=== PATIENT | female | born 1980 | race Caucasian/White ===

== ENCOUNTER → 2020-01-02 07:57 | Outpatient (BNVA) | payer OTHER, SELFPAY | PROVIDERS: Family Provider Family Medicine; PCP Family Medicine; Visit Provider Obstetrics & Gynecology | DX: Z01.419 Encounter for gynecological examination (general) (routine) without abnormal findings (principal); R87.612 Low grade squamous intraepithelial lesion on cytologic smear of cervix (LGSIL) | CPT/HCPCS: 88175 ==

== ENCOUNTER → 2020-02-07 09:53 | Outpatient (BNVA) | payer OTHER, SELFPAY | PROVIDERS: Family Provider Family Medicine; PCP Family Medicine; Referring Provider Obstetrics & Gynecology; Visit Provider Obstetrics & Gynecology | DX: Z32.01 Encounter for pregnancy test, result positive (principal) | CPT/HCPCS: 81025 ==

== ENCOUNTER → 2020-03-07 13:57 | Outpatient (BNVA) | payer OTHER, SELFPAY | PROVIDERS: Family Provider Family Medicine; PCP Family Medicine; Visit Provider Obstetrics & Gynecology | DX: Z01.89 Encounter for other specified special examinations (principal) ==

== ENCOUNTER → 2020-03-27 14:49 | Outpatient (BNVA) | payer OTHER, SELFPAY | PROVIDERS: Family Provider Family Medicine; PCP Family Medicine; Visit Provider Obstetrics & Gynecology | DX: O02.1 Missed abortion (principal); Z3A.12 12 weeks gestation of pregnancy | CPT/HCPCS: 76815 ==

== ENCOUNTER 2020-03-28 10:27 | Day surgery (SDC) | payer OTHER, SELFPAY ==
[2020-03-27 16:48] VITALS: BMI 21.6
[2020-03-28 10:50] VITALS: BP 130/76; PULSE 80; RESP 18; TEMP 36.6; O2SAT 100
[2020-03-28] MEDS: ketorolac 30 mg/mL INJ IVP (11:18)
--- NOTE | 2020-03-28 11:18 | ANES.PREANE2 ---
Pre-Anesthetic Assessment Pre-Anesthetic Assessment: Height/Weight: Height 1.65 m Weight 58.967 kg Temp Pulse Resp BP Pulse Ox 98 F 80 18 130/76 100 03/28/20 10:50 03/28/20 10:50 03/28/20 10:50 03/28/20 10:50 03/28/20 10:50 Preop Diagnosis: Missed AB Proposed Procedure: Operation Date: 03/28/20 12:05 Proposed Procedures p Dilation And Curettage w/ Suction 32358 O02.1(Not Applicable) - Geoff Clarke MD Familial anesthetic complications: None Was Beta Joseph taken within 24 hours: N/A Last intake: Intake NPO > 8 hrs Last Liquid Date 03/27/20 Last Solid Date 03/27/20 Social: Social History: No alcohol and No tobacco Exam: Pre-Anes Outpt Exam: alert, oriented x 3, clear to auscultation bilaterally and regular rate & rhythm Airway: Cervical ROM: WNL MP: 1 Dentition: Full Pulmonary: Pulmonary: None reported CV/HEM: CV/HEM: None reported : : None reported Hepatic: Hepatic: None reported GI: GI: None reported Metabolic: Metabolic: None reported Musc/skel: Musc/skel: None reported Neuropsych: Neuropsych: None reported Anesthetic Plan: ASA status: 1 Anesthesia: General and MAC Risk of > 500 ml blood loss (7ml/kg in children): No PFSH Anesthesia PFSH: Social History Smoking and tobacco status: never smoked Alcohol intake: never Additional social history: well-balanced Data Anesthesia Cardiac Studies: No Data to Display
[2020-03-28 11:19] LABS: Basophils # 0.1 10^3/uL (0.0-0.1); Basophils % 0.5 %; Eosinophils # 0.4 10^3/uL (0.0-0.8); Eosinophils % 4.3 %; Hematocrit 45.4 % (37.0-47.0); Hemoglobin 14.2 g/dL (11.5-15.3); Lymphocytes # 2.2 10^3/uL (0.8-4.8); Lymphocytes % 23.5 %; Mean Corpuscular HGB Conc 31.3 g/dL (30.0-36.0); Mean Corpuscular Hemoglobin 28.8 pg (28.0-34.0); Mean Corpuscular Volume 92.1 fL (81-99); Mean Platelet Volume 9.7 fL (7.4-10.4); Monocytes # 0.5 10^3/uL (0.2-0.9); Monocytes % 4.8 %; Neutrophils # 6.2 10^3/uL (1.8-7.7); Neutrophils % 66.5 %; Nucleated Red Blood Cells % 0 %; Platelet Count 226 10^3/cmm (130-400); Red Blood Count 4.93 10^6/uL (4.1-5.3); Red Cell Distribution Width 13.2 % (12.1-15.1); White Blood Count 9.3 10^3/uL (4.0-10.0)
[2020-03-28] MEDS: sodium chloride 0.9% 1,000 ML 30 ML IV (11:19)
[2020-03-28 11:21] LABS: Add Urine Microscopic? YES; Bilirubin Urine Neg (NEGATIVE); Blood Urine 2+ (Negative); Glucose Urine UA Norm (Normal); Ketones Urine Negative (Negative); Leukocyte Esterase Urine Negative (Negative); Nitrate Urine Negative (Negative); Protein Urine Neg (Negative); Specific Gravity, Urine 1.015 (1.005-1.030); Urine Appearance Clear (CLEAR); Urine Color Yellow (Yellow); Urobilinogen Urine Norm (Negative); pH Urine 6 (5-7)
[2020-03-28 11:25] LABS: RBC Urine 0-4 /hpf (0-2)
[2020-03-28 11:26] LABS: Bacteria Urine TRACE; WBC Urine 0-4 /hpf (0-5)
[2020-03-28 11:27] LABS: Add Urine Culture? No
[2020-03-28 11:34] LABS: Blood Urea Nitrogen 8 mg/dL (6-20); Calcium 9.5 mg/dL (8.5-10.5); Carbon Dioxide 22 mmol/L (22-29); Chloride 103 mmol/L (98-107); Creatinine Clr Calc Pharmacy 98.4325; Glomerular Filtration Rate 93.2 mL/min (90-130); Glucose 93 mg/dL (65-115); Osmolality Calculated 282 mOsm/kg (285-295); Sodium 138 mmol/L (136-145)
[2020-03-28 12:34] VITALS: BP 79/58; PULSE 85; RESP 18; TEMP 36.8; O2SAT 95
--- NOTE | 2020-03-28 12:41 | PM.OP ---
Operative Report Date of procedure: March 28, 2020 Pre-op Diagnosis: Missed AB Post-op diagnosis: same Post-op Findings: Product of conception Procedure Done: Suction dilation and curettage. Polypectomy. Specimens removed/disposition: Product of conception. Endocervical polyp polyp Surgeon: Geoff Clarke Anesthesia: MAC Estimated blood loss (mL): 150 IV fluids (mL): 750 Complications: None Condition: stable Disposition: PACU Brief History: 39 y/o Female with an EGA of 12 weeks 3 days with a missed AB. Procedure: After informed consent, the patient was taken to the Operating Room where general anesthesia was administered. The patient was examined under anesthesia and found to have a normal uterus with normal adnexa. She was placed in the dorsal lithotomy position and prepped and draped in sterile fashion. A sterile weighted speculum was placed in the patient?s vagina. A single-tooth tenaculum was then applied to the cervix. The uterus was then gently sounded to 10 cm and a suction curette was advanced gently to the uterine fundus and product of conception emptied. A sharp curettage was then performed until a gritty texture was noted. There was minimal bleeding noted and the tenaculum was removed with good hemostasis noted. The patient tolerated the procedure well. The patient was taken to the recovery area in stable condition.
[2020-03-28 13:07] VITALS: BP 113/70; PULSE 95; RESP 18; TEMP 36.8; O2SAT 95
== END 2020-03-28 13:37 | disposition home or self-care (01) ==
PROVIDERS: Family Provider Family Medicine; PCP Family Medicine; Visit Provider Obstetrics & Gynecology
PROC: (CPT 59820; principal; 2020-03-28 11:55)
DX: O02.1 Missed abortion (principal); N84.0 Polyp of corpus uteri
CPT/HCPCS: 59820; 12345; 36415; 80048; 81001; 85025; 86850; 86900; 87086; 88305; 96374; J0690; J1885; J2001; J2250; J2704; J3010; J7030

== ENCOUNTER 2020-04-30 11:12 | Outpatient (CLI) | payer OTHER, SELFPAY ==
[2020-04-30 11:49] LABS: HCG Quantitative 0.52 mIU/mL
== END 2020-04-30 11:13 | disposition home or self-care (01) ==
LOC: LAB 11:16
PROVIDERS: PCP Family Medicine; Visit Provider Obstetrics & Gynecology Reproductive Endocrinology
DX: Z32.00 Encounter for pregnancy test, result unknown (principal)
CPT/HCPCS: 84702

== ENCOUNTER 2020-06-27 12:37 | Outpatient (CLI) | payer OTHER, SELFPAY | END 2020-06-27 12:38 | disposition home or self-care (01) | LOC: LAB 12:40 | PROVIDERS: PCP Family Medicine; Visit Provider Obstetrics & Gynecology Reproductive Endocrinology | DX: O09.819 Supervision of pregnancy resulting from assisted reproductive technology, unspecified trimester (principal) | CPT/HCPCS: 84702 ==

== ENCOUNTER 2020-07-04 14:11 | Outpatient (CLI) | payer OTHER, SELFPAY | END 2020-07-04 14:12 | disposition home or self-care (01) | LOC: LAB 14:14 | PROVIDERS: PCP Family Medicine; Visit Provider Obstetrics & Gynecology Reproductive Endocrinology | DX: O09.811 Supervision of pregnancy resulting from assisted reproductive technology, first trimester (principal) | CPT/HCPCS: 36415; 84702; 86850; 86900 ==

== ENCOUNTER → 2020-08-02 09:16 | Outpatient (BNVA) | payer OTHER, SELFPAY | PROVIDERS: PCP Family Medicine; Visit Provider Nurse Practitioner Women's Health | DX: O09.891 Supervision of other high risk pregnancies, first trimester (principal); Z3A.00 Weeks of gestation of pregnancy not specified | CPT/HCPCS: 80053; 84315 ==

== ENCOUNTER → 2020-08-16 10:52 | Outpatient (BNVA) | payer OTHER, SELFPAY | PROVIDERS: PCP Family Medicine; Visit Provider Obstetrics & Gynecology | DX: O09.891 Supervision of other high risk pregnancies, first trimester (principal); Z3A.00 Weeks of gestation of pregnancy not specified | CPT/HCPCS: 80053; 80307; 84315; 85027; 86592; 86762; 86803; 86850; 86900; 87340; 87806 ==

== ENCOUNTER → 2020-08-29 11:30 | Outpatient (BNVA) | payer OTHER, SELFPAY | PROVIDERS: PCP Family Medicine; Visit Provider Obstetrics & Gynecology | DX: O09.891 Supervision of other high risk pregnancies, first trimester (principal); Z3A.13 13 weeks gestation of pregnancy | CPT/HCPCS: 84315; 87491; 87591; 88175 ==

== ENCOUNTER → 2020-09-20 08:08 | Outpatient (BNVA) | payer OTHER, SELFPAY | PROVIDERS: PCP Family Medicine; Visit Provider Nurse Practitioner Women's Health | DX: O09.291 Supervision of pregnancy with other poor reproductive or obstetric history, first trimester (principal); O09.891 Supervision of other high risk pregnancies, first trimester; O34.219 Maternal care for unspecified type scar from previous cesarean delivery | CPT/HCPCS: 80053; 84315 ==

== ENCOUNTER → 2020-12-13 10:12 | Outpatient (BNVA) | payer OTHER, SELFPAY | PROVIDERS: PCP Family Medicine; Visit Provider Obstetrics & Gynecology | DX: O09.892 Supervision of other high risk pregnancies, second trimester (principal); O34.219 Maternal care for unspecified type scar from previous cesarean delivery; O09.523 Supervision of elderly multigravida, third trimester; Z3A.28 28 weeks gestation of pregnancy | CPT/HCPCS: 82950; 84315; 85025 ==

== ENCOUNTER → 2020-12-19 08:20 | Outpatient (BNVA) | payer OTHER, SELFPAY | PROVIDERS: PCP Family Medicine; Visit Provider Obstetrics & Gynecology | DX: R73.09 Other abnormal glucose (principal) | CPT/HCPCS: 82951; 82952 ==

== ENCOUNTER → 2021-02-08 08:56 | Outpatient (BNVA) | payer OTHER, SELFPAY | PROVIDERS: PCP Family Medicine; Visit Provider Obstetrics & Gynecology | DX: Z34.80 Encounter for supervision of other normal pregnancy, unspecified trimester (principal) | CPT/HCPCS: 84315; 87081 ==

== ENCOUNTER → 2021-02-16 10:26 | Outpatient (BNVA) | payer OTHER, SELFPAY | PROVIDERS: PCP Family Medicine; Visit Provider Obstetrics & Gynecology | DX: Z20.822 Contact with and (suspected) exposure to COVID-19 (principal); O09.893 Supervision of other high risk pregnancies, third trimester | CPT/HCPCS: 87635 ==

== ENCOUNTER 2021-02-24 08:01 | Inpatient (IN) | payer OTHER, SELFPAY ==
[2021-02-24] VITALS (81 sets, daily range): BP systolic 96–163; BP diastolic 53–99; PULSE 56–134; RESP 16; TEMP 36.8–37.3; O2SAT 93–100; BMI 26.4
[2021-02-24 09:28] LABS: Basophils # 0.1 10^3/uL (0.0-0.1); Basophils % 0.6 %; Eosinophils # 0.2 10^3/uL (0.0-0.8); Eosinophils % 2.1 %; Hematocrit 40.4 % (37.0-47.0); Hemoglobin 12.7 g/dL (11.5-15.3); Lymphocytes # 2.2 10^3/uL (0.8-4.8); Lymphocytes % 20.6 %; Mean Corpuscular HGB Conc 31.4 g/dL (30.0-36.0); Mean Corpuscular Hemoglobin 29.3 pg (28.0-34.0); Mean Corpuscular Volume 93.1 fL (81-99); Mean Platelet Volume 12.4 fL (7.4-10.4); Monocytes # 0.6 10^3/uL (0.2-0.9); Monocytes % 5.3 %; Neutrophils # 7.63 10^3/uL (1.8-7.7); Neutrophils % 70.2 %; Nucleated Red Blood Cells % 0 %; Platelet Count 179 10^3/cmm (130-400); Red Blood Count 4.34 10^6/uL (4.1-5.3); Red Cell Distribution Width 14.4 % (12.1-15.1); White Blood Count 10.9 10^3/uL (4.0-10.0)
[2021-02-24] MEDS: oxytocin 30 UNIT/500 ML BAG IV (09:39)
[2021-02-24] MEDS: dextrose 5%-lactated ringers 1,000 ML 125 ML IV (09:39)
[2021-02-24] MEDS: lactated ringers 1,000 ML 999 ML IV ×2 (16:10→17:36)
--- NOTE | 2021-02-24 17:04 | P.ANESASSM_ITS ---
Pre-Anesthetic Assessment Pre-Anesthetic Assessment: Height/Weight: Height 1.65 m Weight 72.121 kg Temp Pulse Resp BP 98.8 F 68 16 130/84 02/24/21 13:27 02/24/21 16:52 02/24/21 08:12 02/24/21 16:52 Preop Diagnosis: labor Proposed Procedure: epidural Was Beta Joseph taken within 24 hours: N/A Was Clonidine taken within 24 hours: N/A Last intake: 0700 Last Intake: 12:00 Social: Social History: No alcohol and No tobacco Exam: Pre-Anes Outpt Exam: alert, oriented x 3, clear to auscultation bilaterally and regular rate & rhythm Airway: Submandibular: WNL Cervical ROM: WNL MP: 1 Pulmonary: Pulmonary: None reported CV/HEM: CV/HEM: None reported : : None reported Hepatic: Hepatic: None reported GI: GI: GERD (with ) Metabolic: Metabolic: None reported Musc/skel: Musc/skel: Scoliosis Neuropsych: Neuropsych: None reported Anesthetic Plan: Anesthesia: Eval. for regional block and Regional (specify below) (epidural) Risk of > 500 ml blood loss (7ml/kg in children): No Meds/Allergies Current Medications: Current Medications Generic Name Dose Route Start Last Admin Trade Name Freq PRN Reason Stop Dose Admin Dextrose/Lactated Ringer's 1,000 mls @ 125 m ls/hr 02/24/21 08:45 02/24/21 09:39 Dextrose 5%-Lact ated Ringers IV 125 mls/hr .Q8H JOSE G Administration Oxytocin 30 unit in 500 ml s @ 1 mls/hr 02/24/21 08:45 02/24/21 14:09 Pitocin IV 8 milliunit/min .Q24H JOSE G 8 mls/hr Titration Protocol 1 MILLIUNIT/MIN Lactated Ringer's 1,000 mls @ 999 m ls/hr 02/24/21 16:07 02/24/21 16:10 Lactated Ringers IV 999 mls/hr .Q1H1M PRN Administration See label comment s PFSH Anesthesia PFSH: Medical History History of colon polyps Infertility, female Unexplained Low grade squamous intraepithelial lesion (LGSIL) on cervical Pap smear Migraine with aura Surgical History H/O breast augmentation (~04/2014) Silicone Gel. Below muscle. Performed Dr. Mccrary (?sp) at [facility] in [place], [place] History of melanoma excision (~2014) History of tonsillectomy and adenoidectomy (~1985) Previous section (04/12/04) PLTCS. Dx: Arrest of descent with CPD. Performed by Dr. Garcia at [facility] in [place], [place] S/P dilatation and curettage (03/28/20) Suction D&C for missed AB. Performed per Dr. Clarke at [facility] in [place], [place] Family History Other Patient denies medical problems Social History Smoking and tobacco status: never smoked Alcohol intake: never Other details last substance use: Denies drug use Additional social history: - Tobacco use: Denies Alcohol use: Denies Drug use: Denies Female Reproductive History: : 6 Data Anesthesia CBC & Chem 7: 02/24/21 08:55 Other Labs: Laboratory Results - last 48 hr 02/24/21 08:55 WBC 10.9 H RBC 4.34 Hgb 12.7 Hct 40.4 MCV 93.1 MCH 29.3 MCHC 31.4 RDW 14.4 Plt Count 179 MPV 12.4 H Neut % (Auto) 70.2 Lymph % (Auto) 20.6 [place] % (Auto) 5.3 Eos % (Auto) 2.1 Baso % (Auto) 0.6 Neut # (Auto) 7.63 Lymph # (Auto) 2.2 [place] # (Auto) 0.6 Eos # (Auto) 0.2 Baso # (Auto) 0.1 Nucleated RBC % (auto) 0 Nucleated RBCs # 0.0 Cardiac Studies: No Data to Display
[2021-02-24] MEDS: ondansetron 2 mg/ML SDV 2 mL 4 MG IVP (17:40)
--- NOTE | 2021-02-24 17:57 | ANES.PROC ---
Anesthesia Procedures Procedure/Date: 02/24/21 Epidural: Time Out Performed: Yes Consents Signed: Procedure Consent and NPO Consent Consent: requested by attending/covering physician, from patient, risks and benefits reviewed and patient agrees to proceed Lumbar Level: L3-L4 Epidural position: sitting Epidural procedure: sterile prep of area (betadine), 1% lidocaine to numb the area (3), 18 g needle, neg for paresthesia, test dose given, 1.5% xylocaine 1:200k epi (3ml with no symptoms and 2ml ), placed PCEA, no systemic response, sterile dressing applied, L.U.D. no apparent complications and 0.2% Ropiavacaine @ mls/hr (13ml/hr) Additional Comments: pt with vagal response noted once laid down with BP in 90's and HR in 50's. Pt responded to fluid and lying flat and no rop bolus given. Pt resting comfortable and will continue to monitor
--- NOTE | 2021-02-24 23:11 | PM.DELIVERY ---
Delivery Note: Date of delivery: February 24, 2021 Pre-delivery diagnoses: 1. at 39-0/7 weeks gestation. 2. Previous section, currently , third trimester 3. History of anomaly in prior , currently , third trimester 4. Advanced maternal age in third trimester Post-delivery diagnoses: 1. at 39-0/7 weeks gestation?delivered 2. Previous section?delivered 3. History of anomaly in prior ?delivered 4. Advanced maternal age?delivered 5. Viable male Procedure: Vaginal after section Op report anesthesia: Epidural Delivering Physician: Adrien Garcia MD Estimated blood loss (mL): 200 Pre-Delivery Course: Patient is a 40-year-old female, 6, para 3-0-2-2 with an EDC of 03/03/2021 based on IVF with embryo transfer. She is at 39-0/7 weeks gestation at the time of admission. care has been mainly provided by Dr. Adrien Garcia. Her care has been complicated by prior section with 2 prior successful 's, advanced maternal age, and history of anomaly in prior . Patient was admitted to the hospital at approximately 08:00 on 02/24/2021 for induction of labor. Her cervix was 50% effaced and 3 cm dilated. She was started on low-dose Pitocin. Contractions slowly worsened and increased in frequency through the day. She became uncomfortable enough that epidural was placed at approximately 17:30. Artificial rupture membranes was performed at 18:00 with clear fluid present. She was 3-4 cm dilated and 50% effaced. By 20:38 she was 7 to 8 cm dilated and was completely dilated by 21:27. Baby was reassuring during the labor course. Delivery: Patient was initially very comfortable and was allowed to labor down since the baby was reassuring. She started pushing at 22:21 and delivered at 22:40 as a spontaneous vaginal delivery of an occiput anterior male infant over a second-degree episiotomy under epidural anesthesia. Following delivery of the infant's head, no nuchal cords were noted. The rest the infant delivered atraumatically with the left shoulder anterior. was placed on the mother's abdomen where it was left in the care of the waiting nurses. Baby was spontaneously crying. Cord clamping was delayed till 30 seconds after delivery. Cord was then clamped and then cut by the reported father of the baby. Cord blood was obtained. Pitocin bolus was started. Placenta delivered intact by simple expression at 22:44. Cervix and vagina were palpated and noted to be intact. The anterior lower segment of the uterus was palpated and noted to be intact. Patient was noted to have a second-degree midline episiotomy without extension. The episiotomy was repaired with 3-0 Vicryl suture. FINDINGS 1. Viable male infant weighing 7 lbs 10 oz (3460 g) with a length of 21-1/4 inches and Apgars of 10 at 1 minute and 10 at 5 minutes. 2. Three-vessel cord with no loops of nuchal cord noted. 3. Normal-appearing placenta with a central cord insertion. Post-Delivery Status: Mother and infant were left to recover in satisfactory condition. A&P Assessment and plan (1) History of delivery, currently : Status: Acute (2) Advanced maternal age, delivered, current hospitalisation: Status: Acute (3) History of anomaly in prior , currently in third trimester: Status: Acute Coding Level of Care Code Acute Information Security Analyst for Chg Fwd Diagnoses History of delivery, currently O34.219 Advanced maternal age, delivered, current hospitalisation History of anomaly in prior , currently in third trimester O09.293
[2021-02-25] VITALS (20 sets, daily range): BP systolic 72–148; BP diastolic 50–92; PULSE 63–93; TEMP 36.2–36.3
[2021-02-25] MEDS: benzocaine-menthol 78 gm Canister 1 SPRAY TOPICAL (01:22)
[2021-02-25] MEDS: lanolin oint 7 gm 1 APPLIC TOPICAL (01:22)
[2021-02-25] MEDS: HYDROcodone-acetaminophen 5-325 mg Tablet PO (03:48)
[2021-02-25] MEDS: ibuprofen 800 mg tablet PO ×2 (08:14→14:41)
[2021-02-25] MEDS: docusate sodium 100 mg Capsule PO (08:14)
[2021-02-25 11:26] LABS: Hematocrit 33.8 % (37.0-47.0); Hemoglobin 11.1 g/dL (11.5-15.3); Mean Corpuscular HGB Conc 32.8 g/dL (30.0-36.0); Mean Corpuscular Hemoglobin 29.8 pg (28.0-34.0); Mean Corpuscular Volume 90.6 fL (81-99); Mean Platelet Volume 11.7 fL (7.4-10.4); Platelet Count 207 10^3/cmm (130-400); Red Blood Count 3.73 10^6/uL (4.1-5.3); Red Cell Distribution Width 14.6 % (12.1-15.1); White Blood Count 15.8 10^3/uL (4.0-10.0)
--- NOTE | 2021-02-25 18:31 | P.DS_ITS ---
Discharge Providers Date of Admission: 02/24/21 08:01 Date of Discharge: February 25, 2021 Attending Provider at Admission: Adrien Garcia MD Attending Provider at Discharge: Adrien Garcia MD Primary Care Provider: Kezia Davidson DO Diagnoses at Discharge Discharge Diagnosis (1) History of delivery, currently : Status: Acute (2) Advanced maternal age, delivered, current hospitalisation: Status: Acute (3) History of anomaly in prior , currently in third trimester: Status: Acute Reason for Visit Reason for Visit: INDUCTION Hospital Course Hospital Course Patient is a 40-year-old female 6, para 3-0-2-2 with an EDC of 03/03/2021 based on IVF embryo transfer, which placed her at 39-0/7 weeks gestation at the time of admission. care was provided by Dr. Adrien Garcia. was complicated by advanced maternal age, history of anomaly in prior , and prior section with 2 successful VBACs. She was admitted to the hospital at 39 weeks for induction of labor on 02/24/2021 due to recommendations of MFM due to her past history. She was started on low- dose Pitocin for cervical ripening and induction of labor. She was 3 cm dilated and 50% effaced on admission. She had artificial rupture membranes at 18:00 with clear fluid present. She was 3 to 4 cm dilated. She started progressing after th is and was found to be completely dilated by 21:27. She was very comfortable with the epidural and labor down. She started pushing at 22:21 and delivered at 22:40 as a spontaneous vaginal delivery of an occiput anterior male over a second-degree midline episiotomy under epidural anesthesia. Baby weighed 7 lbs 10 oz (3460 g) with a length of 21-1/4 in and Apgars of 10 at 1 minute and 10 at 5 minutes. Mother and baby were doing well following delivery. day one Patient reports doing well. She reports tolerating a regular diet without nausea or vomiting. She denied lightheadedness or dizziness with ambulation. She denied shortness of breath or chest pains. She states that her pain is been well controlled. She denied any problems with urination. She states that her bleeding has slowed. She she is breast-feeding. She is requesting to go home this evening. Physical exam: See below Plan Discharge to home. Discharge instructions discussed with patient. She is to follow-up in the office in approximately 6 weeks for exam. Physical Exam Const: COMMON NORMALS: no acute distress, average body habitus, alert and well nourished GENERAL APPEARANCE: well developed ORIENTATION/CONSCIOUSNESS: Yes oriented to person, Yes oriented to place and Yes oriented to time Resp: COMMON NORMALS: normal respiratory effort and clear to auscultation bilaterally AUSCULTATION: clear to auscultation bilaterally Cardio: COMMON NORMALS: regular rate, regular rhythm, No gallops present (Cardio) and No rub (Cardio) RATE: regular rate RHYTHM: regular rhythm PERIPHERAL PULSES: posterior tibial pulses present GI: COMMON NORMALS: Soft to palpation, non-tender, No hepatosplenomegaly p resent and no masses (Except for uterus) AUSCULTATION: Yes normoactive bowel sounds PALPATION: Yes Soft to palpation, Yes No hepatosplenomegaly present and No Hernia present : EXTERNAL FEMALE EXAM: No Hernia present Extremity: COMMON NORMALS: no calf tenderness NARRATIVE EXTREMITY EXAM: Trace to 1+ lower extremity edema bilaterally Neuro: SENSORIUM/ORIENTATION: Yes alert, Yes oriented to person, Yes oriented to place and Yes oriented to time Psych: COMMON NORMALS: normal affect MOOD & AFFECT: Yes euthymic mood Urinary Catheter Management^: [place]: Cath Placed During This Visit: yes, but has since been removed by the nurse Reason for Continuing Indwelling Catheter: Decision to DC Catheter Urinary Catheter Date of Insertion: 02/24/21 Urinary Catheter Time of Insertion: 19:15 Date Urinary Catheter Removed: 02/24/21 Time Urinary Catheter Discontinued: 22:19 Discharge Data Data Completed and Pending: Labs from last 24 hours 02/25/21 11:05 WBC 15.8 H RBC 3.73 L Hgb 11.1 L Hct 33.8 L MCV 90.6 MCH 29.8 MCHC 32.8 RDW 14.6 Plt Count 207 MPV 11.7 H Vitals: Last Vital Signs Temp 97.3 F L 02/25/21 14:40 Pulse 71 02/25/21 14:40 Resp 16 02/24/21 23:38 BP 119/73 02/25/21 14:40 Pulse Ox 100 02/24/21 18:16 Discharge Plan Discharge Patient Disposition: Home Condition: Stable Prescriptions: New ibuprofen 800 mg Tablet 800 mg PO TID PRN (Reason: pain) Qty: 40 RF: 0 hydrocodone-acetaminophen 5-325 mg Tablet 1 - 2 tab PO Q6H PRN (Reason: Moderate To Severe Pain) Qty: 20 RF: 0 Continued prenat.vits,fanny,[id number] Tablet 1 tab PO DAILY RF: 0 omeprazole 20 mg capsule,delayed release(DR/EC) 20 mg PO BID PRNRF: 0 Discharge Orders: Discharge Order (Routine); Ordered 02/25/21 Ordered By: Adrien Garcia Referrals: Adrien Garcia MD [Physician] - 6 Weeks ( exam Please call [facility] first thing Thursday to schedule your 6 week appointment.) Discharge Diet: Regular Discharge Activity: Limit activity as instructed Patient Instructions: Pre-eclampsia and Eclampsia (DC), Bleeding (DC), OB Discharge Report, OB Food/Drug Interaction Guide, OB Proud Parent Packet, OB Vaginal Deliveries, OB Vaginal Deliveries - [facility], Abnormal Bleeding Discharge Attestations Time Spent in Discharge Care*: less than 30 min Quality Metrics Clinical Quality Measures During this hospital stay, did patient experience: None Coding Level of Care Code Acute Chg FW DC note Diagnoses History of delivery, currently O34.219 Advanced maternal age, delivered, current hospitalisation History of anomaly in prior , currently in third trimester O09.293
== END 2021-02-25 23:34 | disposition home or self-care (01) | DRG 807 ==
PROVIDERS: Admitting Provider Obstetrics & Gynecology; PCP Family Medicine; Visit Provider Obstetrics & Gynecology
DX: O34.219 Maternal care for unspecified type scar from previous cesarean delivery (principal); Z37.0 Single live birth; N85.8 Other specified noninflammatory disorders of uterus; O99.62 Diseases of the digestive system complicating childbirth; K21.9 Gastro-esophageal reflux disease without esophagitis; Z3A.39 39 weeks gestation of pregnancy
CPT/HCPCS: 36415; 51702; 59409; 85025; 85027; J2405; J2795

== ENCOUNTER → 2021-04-04 11:50 | Outpatient (BNVA) | payer OTHER, SELFPAY | PROVIDERS: PCP Family Medicine; Visit Provider Obstetrics & Gynecology | DX: R87.612 Low grade squamous intraepithelial lesion on cytologic smear of cervix (LGSIL) (principal) | CPT/HCPCS: 88175 ==

== ENCOUNTER → 2021-04-15 14:17 | Outpatient (BNVA) | payer OTHER, SELFPAY | PROVIDERS: PCP Family Medicine; Visit Provider Registered Nurse Neonatal Intensive Care | DX: N39.0 Urinary tract infection, site not specified (principal) | CPT/HCPCS: 81000 ==

== ENCOUNTER 2021-11-08 12:35 | Outpatient (CLI) | payer OTHER, SELFPAY ==
[2021-11-08 12:45] VITALS: BP 104/69; PULSE 111; RESP 16; TEMP 36.8; O2SAT 98; BMI 21.6
[2021-11-08 12:50] VITALS: BP 103/77; PULSE 90; RESP 16; TEMP 36.9; O2SAT 97; BMI 21.6
[2021-11-08 13:35] VITALS: BP 95/67; PULSE 94; RESP 16; TEMP 37.2; O2SAT 94
== END 2021-11-08 12:36 | disposition home or self-care (01) ==
LOC: OPS 12:38
PROVIDERS: PCP Family Medicine; Visit Provider Hospitalist
DX: U07.1 COVID-19 (principal)
CPT/HCPCS: 96365

== ENCOUNTER 2022-08-22 15:37 | Outpatient (CLI) | payer OTHER, SELFPAY ==
--- NOTE | 2022-08-22 15:59 | XRR_ITS ---
PROCEDURE INFORMATION: Exam: XR Entire Spine, 2 or 3 Views, Scoliosis Exam date and time: 08/22/2022 4:00 PM Age: 41 years old Clinical indication: Low back pain; Patient HX: Back pain, HX scoliosis; Additional info: Scoliosis of thoracic spine TECHNIQUE: Imaging protocol: XR of the entire spine, 2 or 3 views. Evaluation for scoliosis. COMPARISON: No relevant prior studies available. FINDINGS: Bones/joints: Mild rightward convex lower thoracic spine scoliosis. Minimal leftward convex lumbar spine curvature. No vertebral subluxation. No fractures. No vertebral segmentation anomaly. No focal lytic bone lesion. No significant degenerative changes. Soft tissues: Normal. XR/XR scoliosis survey 4-5 [id number] IMPRESSION: 1. No acute thoracic or lumbar spine abnormality. 2. Mild scoliosis.
== END 2022-08-22 15:38 | disposition home or self-care (01) ==
PROVIDERS: Visit Provider Nurse Practitioner Family
DX: M41.9 Scoliosis, unspecified (principal)
CPT/HCPCS: 72083

== ENCOUNTER → 2024-12-01 10:32 | Outpatient (BNVA) | payer BC, SELFPAY | PROVIDERS: Visit Provider Nurse Practitioner Women's Health | DX: R87.610 Atypical squamous cells of undetermined significance on cytologic smear of cervix (ASC-US) | CPT/HCPCS: 87624 ==